=== PATIENT | female | born 1945 | race Caucasian/White ===

== ENCOUNTER 2017-02-21 10:10 | Inpatient (IN) | payer OTHER ==
[~2017-02-21] VITALS: Ht 160 cm; Wt 97.3 kg
[2017-02-21] MEDS ORDERED: DEXAMETHASONE SOD PHOSPHATE 10MG/ML 1ML VIAL ONE (11:11)
[2017-02-21] MEDS ORDERED: SODIUM CHLORIDE 0.9% 1000ML 1,000 ML IV ONE ×2 (11:11→14:00)
[2017-02-21] MEDS ORDERED: CEFTRIAXONE SODIUM 2 GM VIAL ONE (11:17)
[2017-02-21 11:19] LABS: BASOPHILS % (AUTO) 0.2 % (0.0-5.0); EOSINOPHILS % (AUTO) 0.3 % (0.0-8.0); HEMATOCRIT 33.5 % (36-48); MEAN CORPUSCULAR HEMOGLOBIN 29.5 pg (27.0-33.0); MEAN CORPUSCULAR HGB CONC 34.6 g/dL (32.0-36.0); MEAN CORPUSCULAR VOLUME 85.3 fL (79-99); MONOCYTES % (AUTO) 8.2 % (3.0-13.0); NEUTROPHILS % (AUTO) 86.3 % (40.0-77.0); PLATELET COUNT (AUTO) 226 K/uL (130-400); RED BLOOD CELL COUNT(AUTO) 3.93 MIL/uL (4.00-5.50); RED CELL DISTRIBUTION WIDTH 13.7 % (11.0-15.5); WHITE BLOOD COUNT (AUTO) 8.5 K/uL (4.8-10.8)
[2017-02-21 11:26] LABS: CARBON DIOXIDE 27 mmol/L (21-32); CHLORIDE 95 mmol/L (101-111); GLOMERULAR FILTR. RATE CALC 58 mL/min (>60); GLUCOSE,RANDOM 126 mg/dL (70-105); POTASSIUM 3.7 mmol/L (3.5-5.1); SODIUM SERUM 131 mmol/L (136-145); UREA NITROGEN, BLOOD 13 mg/dL (7-18)
[2017-02-21] MEDS ORDERED: IPRATROPIUM/ALBUTEROL SULFATE 3 ML SOLUTION IH ONE ×2 (11:32→21:19)
[2017-02-21 11:40] LABS: ALANINE AMINOTRANSFERASE 50 U/L (12-78); ALBUMIN 3.2 g/dL (3.5-5.0); ASPARTATE AMINOTRANSFERASE 56 U/L (10-37); BILIRUBIN,TOTAL 0.4 mg/dL (0.2-1.0); CREATINE KINASE MB 0.5 ng/mL (0.5-3.6); CREATINE KINASE, TOTAL 198 U/L (21-232); MYOGLOBIN 67 ng/mL (10-92); TOTAL PROTEIN, SERUM 7.2 g/dL (6.0-8.3); TROPONIN I < 0.04 ng/mL (0.00-0.06)
[2017-02-21 11:46] LABS: INR 0.95 (0.85-1.15); PARTIAL THROMBOPLASTIN TIME 29.2 SEC (26.3-35.5)
[2017-02-21] MEDS ORDERED: ALBUTEROL SULFATE 0.083% 2.5 MG/3 ML INH IH ONE (11:46)
[2017-02-21 12:59] LABS: APPEARANCE,URINE Clear (CLEAR); BILIRUBIN,URINE Negative (NEGATIVE); COLOR,URINE Yellow (YELLOW); GLUCOSE, URINE (UA) Negative (NEGATIVE); KETONES,URINE Negative (NEGATIVE); LEUKOCYTE ESTERASE ,URINE Negative (NEGATIVE); NITRATE,URINE Negative (NEGATIVE); OCCULT BLOOD,URINE Negative (NEGATIVE); PH,URINE 7.5 (5.0-8.0); PROTEIN,URINE Negative (NEGATIVE); UROBILINOGEN,URINE 0.2 mg/dL (0.2-1.0)
[2017-02-21] MEDS ORDERED: LEVOFLOXACIN 500 MG/D5W 100 ML 100 ML ONE (14:00)
[2017-02-21] MEDS: SODIUM CHLORIDE 0.9% 1000ML 1,000 ML IV SCH (21:12)
[2017-02-21] MEDS ORDERED: ACETAMINOPHEN 325 MG TAB PO PRN (21:15)
[2017-02-21] MEDS: LEVOFLOXACIN 500 MG/D5W 100 ML 100 ML IV SCH (21:15)
[2017-02-21] MEDS ORDERED: ONDANSETRON HCL 4 MG/2 ML VIAL IV PRN (21:15)
[2017-02-21] MEDS: IPRATROPIUM/ALBUTEROL SULFATE 3 ML SOLUTION IH SCH (22:00)
[2017-02-21] MEDS ORDERED: MULT-1203 PO (22:33)
[2017-02-21] MEDS ORDERED: ASPI-555 PO (22:33)
[2017-02-21] MEDS ORDERED: FISH1CAP49 PO (22:33)
[2017-02-21] MEDS ORDERED: METO100T7 PO (22:33)
[2017-02-21] MEDS ORDERED: AMLO5TAB4 PO (22:33)
[2017-02-21 22:40] VITALS: BP 164/75
[2017-02-22 00:17] VITALS: BP 150/68
[2017-02-22] MEDS: IPRATROPIUM/ALBUTEROL SULFATE 3 ML SOLUTION IH SCH ×6 (02:04→22:10)
[2017-02-22 04:21] VITALS: BP 119/58
[2017-02-22] MEDS: GUAIFENESIN-DM 200/20 MG 10 ML PO PRN ×2 (05:19→20:36)
[2017-02-22 06:03] LABS: HEMATOCRIT 29.7 % (36-48); MEAN CORPUSCULAR HEMOGLOBIN 30.1 pg (27.0-33.0); MEAN CORPUSCULAR HGB CONC 35.3 g/dL (32.0-36.0); MEAN CORPUSCULAR VOLUME 85.4 fL (79-99); PLATELET COUNT (AUTO) 253 K/uL (130-400); RED BLOOD CELL COUNT(AUTO) 3.48 MIL/uL (4.00-5.50); RED CELL DISTRIBUTION WIDTH 13.8 % (11.0-15.5); WHITE BLOOD COUNT (AUTO) 10.5 K/uL (4.8-10.8)
[2017-02-22 06:13] LABS: POTASSIUM 3.6 mmol/L (3.5-5.1)
[2017-02-22] MEDS ORDERED: SODIUM CHLORIDE 0.9% 1000ML 1,000 ML IV ONE (07:56)
[2017-02-22] MEDS: PANTOPRAZOLE SODIUM 40 MG TABLET.DR PO SCH (08:00)
[2017-02-22] MEDS: ENOXAPARIN SODIUM 40 MG/0.4 ML SYRINGE SQ SCH (08:01)
[2017-02-22 08:05] VITALS: BP 154/70
[2017-02-22] MEDS: SODIUM CHLORIDE 0.9% 1000ML 1,000 ML IV SCH ×2 (08:07→20:36)
[2017-02-22 11:49] VITALS: BP 150/67
[2017-02-22 16:35] VITALS: BP 143/65
[2017-02-22] MEDS: LEVOFLOXACIN 500 MG/D5W 100 ML 100 ML IV SCH (20:36)
[2017-02-22 21:07] VITALS: BP 165/75
[2017-02-23 00:25] VITALS: BP 152/72
[2017-02-23] MEDS: IPRATROPIUM/ALBUTEROL SULFATE 3 ML SOLUTION IH SCH ×6 (02:00→22:07)
[2017-02-23 04:00] VITALS: BP 160/73
[2017-02-23 08:00] VITALS: BP 169/83
[2017-02-23] MEDS: PANTOPRAZOLE SODIUM 40 MG TABLET.DR PO SCH (08:40)
[2017-02-23] MEDS: ENOXAPARIN SODIUM 40 MG/0.4 ML SYRINGE SQ SCH (08:40)
[2017-02-23] MEDS: OSELTAMIVIR PHOSPHATE 75 MG CAP PO SCH ×2 (10:37→20:20)
[2017-02-23 11:30] VITALS: BP 151/76
[2017-02-23] MEDS: GUAIFENESIN-DM 200/20 MG 10 ML PO PRN (14:34)
[2017-02-23 16:13] VITALS: BP 158/85
[2017-02-23] MEDS: LEVOFLOXACIN 500 MG/D5W 100 ML 100 ML IV SCH (20:20)
[2017-02-23 20:34] VITALS: BP 161/77
[2017-02-24] VITALS: BP 168/79
[2017-02-24] MEDS: IPRATROPIUM/ALBUTEROL SULFATE 3 ML SOLUTION IH SCH ×6 (01:44→22:29)
[2017-02-24 04:09] VITALS: BP 153/80
[2017-02-24 08:00] VITALS: BP 152/69
[2017-02-24] MEDS: OSELTAMIVIR PHOSPHATE 75 MG CAP PO SCH ×2 (08:44→20:50)
[2017-02-24] MEDS: PANTOPRAZOLE SODIUM 40 MG TABLET.DR PO SCH (08:44)
[2017-02-24] MEDS: ENOXAPARIN SODIUM 40 MG/0.4 ML SYRINGE SQ SCH (08:45)
[2017-02-24] MEDS: GUAIFENESIN-DM 200/20 MG 10 ML PO PRN (08:46)
[2017-02-24 11:57] VITALS: BP 167/77
[2017-02-24 15:49] VITALS: BP 158/72
[2017-02-24 20:11] VITALS: BP 157/76
[2017-02-24] MEDS: BENZONATATE 100 MG CAPSULE PO SCH (20:50)
[2017-02-24] MEDS: METOPROLOL TARTRATE 50 MG TAB PO SCH (20:52)
[2017-02-24] MEDS: LEVOFLOXACIN 500 MG/D5W 100 ML 100 ML IV SCH (20:53)
[2017-02-24] MEDS ORDERED: AMLODIPINE BESYLATE 5 MG TAB PO SCH (21:00)
[2017-02-24] MEDS ORDERED: ASPIRIN 81 MG EC TAB PO SCH (21:00)
[2017-02-25 00:43] VITALS: BP 123/60
[2017-02-25] MEDS: IPRATROPIUM/ALBUTEROL SULFATE 3 ML SOLUTION IH SCH ×4 (02:04→13:41)
[2017-02-25 04:44] VITALS: BP 146/70
[2017-02-25 05:27] LABS: HEMATOCRIT 32.8 % (36-48); MEAN CORPUSCULAR HEMOGLOBIN 29.8 pg (27.0-33.0); MEAN CORPUSCULAR HGB CONC 34.7 g/dL (32.0-36.0); MEAN CORPUSCULAR VOLUME 85.7 fL (79-99); PLATELET COUNT (AUTO) 345 K/uL (130-400); RED BLOOD CELL COUNT(AUTO) 3.83 MIL/uL (4.00-5.50); RED CELL DISTRIBUTION WIDTH 14.1 % (11.0-15.5); WHITE BLOOD COUNT (AUTO) 7.6 K/uL (4.8-10.8)
[2017-02-25 06:23] LABS: BAND NEUTROPHILS % (MANUAL) 2 % (0-2); LYMPHOCYTES % (MANUAL) 25 % (22-44); MONOCYTES % (MANUAL) 12 % (2-9); REACTIVE LYMPHOCYTES 2 % (0-0); SEGMENTED NEUTROPHILS % 59 % (40-70)
[2017-02-25 06:24] LABS: MAN.DIFF COMMENT-IMPRESSION MANUAL DIFFERENTIAL; PLATELET MORPHOLOGY COMMENT ADEQUATE
[2017-02-25 07:36] VITALS: BP 163/74
[2017-02-25] MEDS: PANTOPRAZOLE SODIUM 40 MG TABLET.DR PO SCH (08:31)
[2017-02-25] MEDS: METOPROLOL TARTRATE 50 MG TAB PO SCH (08:31)
[2017-02-25] MEDS: OSELTAMIVIR PHOSPHATE 75 MG CAP PO SCH (08:31)
[2017-02-25] MEDS: ENOXAPARIN SODIUM 40 MG/0.4 ML SYRINGE SQ SCH (08:32)
[2017-02-25] MEDS: BENZONATATE 100 MG CAPSULE PO SCH (08:32)
[2017-02-25] MEDS ORDERED: MULTIVITAMIN WITH MINERALS TABLET PO SCH (09:00)
[2017-02-25] MEDS ORDERED: FISH OIL 1000 MG/CAP PO SCH (09:00)
[2017-02-25 10:53] VITALS: BP 157/72
[2017-02-25] MEDS ORDERED: PRED20TA3 PO (12:22)
[2017-02-25] MEDS ORDERED: BENZ-51 PO (12:22)
[2017-02-25] MEDS ORDERED: ALBU8.5H8 IH (12:22)
[2017-02-25] MEDS ORDERED: OSEL75 PO (12:22)
[2017-02-25] MEDS ORDERED: LEVO500T2 PO (12:32)
== END 2017-02-25 14:00 | disposition home or self-care (01) | DRG 203 ==
LOC: EDH 10:10 → EDHIP 13:45 → 4AH 22:11
PROVIDERS: ADMIT Family Medicine; ATTEND Family Medicine
DX: J20.9 Acute bronchitis, unspecified (principal); E66.9 Obesity, unspecified; M19.90 Unspecified osteoarthritis, unspecified site; I10 Essential (primary) hypertension; Z68.38 Body mass index [BMI] 38.0-38.9, adult; Z90.49 Acquired absence of other specified parts of digestive tract; Z28.21 Immunization not carried out because of patient refusal; Z82.49 Family history of ischemic heart disease and other diseases of the circulatory system
CPT/HCPCS: 36415; 71046; 80048; 80053; 81003; 82550; 82553; 83605; 83735; 83874; 84484; 85025; 85027; 85610; 85730; 87040; 87088; 87633; 87804; 93005; 94640; 94664; J0696; J1100; J1650; J1956; J7030